=== PATIENT | female | born 1990 | race Caucasian/White ===

== ENCOUNTER 2023-11-29 10:08 | Outpatient (CLI) | payer BC, SELFPAY ==
[2023-11-28 18:31] LABS: 25-OH Vitamin D, Total 26.1 ng/mL (30-100)
[2023-11-28 18:40] LABS: HCG,Quantitative < 2 mIU/ml (0-5.42)
[2023-11-28 18:46] LABS: Thyroid Stimulating Hormone 1.67 uIU/mL (0.465-4.68)
== END 2023-11-29 23:59 | disposition home or self-care (01) ==
LOC: LAB.DROPOF 10:09
PROVIDERS: Visit Provider Family Medicine
DX: R53.83 Other fatigue (principal); E55.9 Vitamin D deficiency, unspecified; Z68.31 Body mass index [BMI] 31.0-31.9, adult
CPT/HCPCS: 82306; 84443; 84702